=== PATIENT | female | born 1975 | race Caucasian/White ===

== ENCOUNTER 2017-03-07 01:40 | Emergency (ER) | payer OTHER ==
[2017-03-07] MEDS ORDERED: Albuterol 0.083% Inhal Sol (2.5 mg/3 mL) UD IH STA (02:17)
--- NOTE | 2017-03-07 02:18 | C.PDOC ---
History Of Present Illness 41 yo female w/o significant PMHx come in for evaluation of cold sx for past few days. Pt reports, (+) nasal congestion, productive cough with yellow sputum. Pt sts, " was unable to sleep last night, have chest congestion". Otherwise, pt denies high fever, chills, headache, dizziness, drooling, dysphagia, dyspnea, SOB, wheezing, abd. pain, V/D, UTI sx. Denies recent travel or know sick contact. At he time of evaluation, pt is awake, playful, not in any apparent distress. Time Seen by Provider: 03/07/17 01:50 Chief Complaint (Nursing): ENT Problem History Per: Patient Onset/Duration Of Symptoms: Gradual Past Medical History Reviewed: Historical Data, Nursing Documentation, Vital Signs Vital Signs: Last Vital Signs Temp 98.7 F 03/07/17 01:51 Pulse 75 03/07/17 01:51 Resp 20 03/07/17 01:51 BP 137/83 03/07/17 01:51 Pulse Ox 98 03/07/17 02:18 - Medical History PMH: No Chronic Diseases Surgical History: No Surg Hx Family History: States: Unknown Family Hx - Social History Hx Tobacco Use: No Hx Alcohol Use: No Hx Substance Use: No - Immunization History Hx Tetanus Toxoid Vaccination: No Hx Influenza Vaccination: No Hx Pneumococcal Vaccination: No Review Of Systems Except As Marked, All Systems Reviewed And Found Negative. Constitutional: Negative for: Fever, Chills ENT: Positive for: Nose Discharge, Nose Congestion. Negative for: Ear Discharge , Throat Pain Cardiovascular: Negative for: Chest Pain Respiratory: Positive for: Cough. Negative for: Shortness of Breath, Sputum, Wheezing Gastrointestinal: Negative for: Nausea, Vomiting, Abdominal Pain Musculoskeletal: Negative for: Neck Pain, Back Pain Skin: Negative for: Rash Neurological: Negative for: Altered Mental Status, Headache, Dizziness Physical Exam - Physical Exam Appears: Well, Non-toxic, No Acute Distress Skin: Normal Color, Warm, Dry, No Rash Eye(s): bilateral: PERRL Nose: No Flaring, No Discharge Oral Mucosa: Moist, No Drooling Throat: No Erythema, No Drooling Neck: Trachea Midline, Supple Cardiovascular: Rhythm Regular Respiratory: No Decreased Breath Sounds, No Accessory Muscle Use, No Rales, No Stridor Gastrointestinal/Abdominal: Soft, No Tenderness, No Distention, No Guarding Back: No CVA Tenderness Extremity: Normal ROM, No Pedal Edema, No Deformity ED Course And Treatment O2 Sat by Pulse Oximetry: 98 Pulse Ox Interpretation: Normal - Radiology CXR: Interpreted by Me, Viewed By Me CXR Interpretation: Yes: No Acute Disease Progress Note: On re-eval, pt is afebrile, hemodynamicaly stable. Non-toxic. PulseOx 98% rA. Neck: SUpple, (-) meningeal sign. ENT: No acute findings. Lungs: CTA B/L, BS equal B/L. ABd: benign. CXR- no acute findings. PT has clinical findings c/w acute bronchitis. Pt advised. ref. to F/u with PMD in 2- 3 days for re-eavl. return to ED if any worsening or new changes. Disposition Counseled Patient/Family Regarding: Studies Performed, Diagnosis, Need For Followup, Rx Given - Disposition Referrals: Anderson Pizarro MD [Medical Doctor] - Disposition: HOME/ ROUTINE Disposition Time: 03:10 Condition: STABLE Additional Instructions: Encourage fluids Take medication as prescribed Follow up with PMD In 2-3 days for re-evaluation. return if any new changes. Prescriptions: Albuterol HFA [Ventolin HFA 90 mcg/actuation (8 g)] 1 puff IH Q6 #1 inhaler Azithromycin [Zithromax] 250 mg PO DAILY #4 tab Prednisone [Deltasone] 20 mg PO DAILY #3 tablet Instructions: Acute Bronchitis (ED) Forms: [employer] (Maldivian) - Clinical Impression Clinical Impression: Bronchitis
[2017-03-07] MEDS ORDERED: Albuterol 0.083% Inhal Sol (2.5 mg/3 mL) UD ONE (02:41)
[2017-03-07 03:56] VITALS: BP 129/81; PULSE 71; RESP 16; TEMP 98.4; O2SAT 99
--- NOTE | 2017-03-07 09:15 | RAD ---
Chest x-ray two views History: Cough. Comparison: 07/04/2014 Findings: Mild venous congestion. No focal infiltrate or effusion. Heart size within normal limits. Impression: No focal infiltrate or effusion.
== END 2017-03-07 03:55 | disposition home or self-care (01) ==
LOC: C.ER 01:40
DX: J20.9 Acute bronchitis, unspecified (principal)